=== PATIENT | male | born 1935 | race Caucasian/White ===

== ENCOUNTER 2017-01-07 16:13 | Emergency (ER) | payer MEDICARE, MEDICAID ==
[2017-01-07] MEDS ORDERED: Adacel (T-DAP) 0.5 ML VIAL ONE (16:19)
[2017-01-07] MEDS ORDERED: Lidocaine 1% 20 ML MDV ONE (16:19)
== END 2017-01-07 16:59 | disposition home or self-care (01) ==
LOC: BURERS 16:13
DX: S61.012A Laceration without foreign body of left thumb without damage to nail, initial encounter (principal); I10 Essential (primary) hypertension; I25.2 Old myocardial infarction; E78.5 Hyperlipidemia, unspecified; W26.0XXA Contact with knife, initial encounter
CPT/HCPCS: 12001; 90471; 90715; J2001

== ENCOUNTER 2023-05-15 15:24 | Emergency (ER) | payer OTHER, MEDICAID ==
[2023-05-15] MEDS ORDERED: Lidocaine 1%/Epinephrine 1:100K 10 ML VIAL ONE (15:47)
[2023-05-15] MEDS ORDERED: Cephalexin 250 MG CAP ONE (16:35)
== END 2023-05-15 16:37 | disposition home or self-care (01) ==
LOC: BURERS 15:24
DX: L98.9 Disorder of the skin and subcutaneous tissue, unspecified (principal); L03.114 Cellulitis of left upper limb; I25.10 Atherosclerotic heart disease of native coronary artery without angina pectoris; E78.5 Hyperlipidemia, unspecified; I10 Essential (primary) hypertension
CPT/HCPCS: 99283